=== PATIENT | female | born 1985 | race Caucasian/White ===

== ENCOUNTER 2022-03-26 17:21 | Outpatient (CLI) | payer BC, OTHER ==
[2022-03-26 18:12] LABS: Pregnancy Test - Urine (BHCG) Negative (Negative); Pregu Control Background? CLEAR/WHITE (CLR/WHITE); Pregu Control Bar Appear? YES (CONTROL BAR)
[2022-03-26 18:14] LABS: Hemoglobin 12.7 g/dL (12.0-15.5); Mean Corpuscular HGB CONC 31.8 g/dL (32.0-36.0); Mean Corpuscular Hemoglobin 28.1 pg (27.0-33.0); Mean Corpuscular Volume 88.5 fl (81.6-98.3); Mean Platelet Volume 9.8 fl (7.4-10.4); Platelet Count 342 10x3/uL (150-450); RBC Distribution Width 13.4 % (11.5-14.5); Red Blood Cell (RBC) Count 4.52 10x6/uL (3.90-5.03); White Blood Cell (WBC) Count 7.8 10x3/uL (3.5-10.5)
[2022-03-26 18:36] LABS: Anion Gap 18 mmol/L (10-20); BUN (Urea Nitrogen) 11 mg/dL (7.0-18.7); Calc. Creatinine Clearance 0 mL/min (70-130); Calcium 9.4 mg/dL (7.8-10.44); Carbon Dioxide 23 mmol/L (22-29); Chloride 104 mmol/L (98-107); Glucose 91 mg/dL (70-105); Potassium 3.9 mmol/L (3.5-5.1); Sodium 141 mmol/L (136-145)
[2022-03-27 12:35] LABS: SARS-CoV-2 PCR by NAA Not Detected (NotDetected)
== END 2022-03-26 17:22 | disposition home or self-care (01) ==
LOC: CSHLAB 17:21
PROVIDERS: ATTEND Obstetrics & Gynecology
DX: Z01.812 Encounter for preprocedural laboratory examination (principal); Z20.822 Contact with and (suspected) exposure to COVID-19
CPT/HCPCS: 80048; 81025; 85027; U0003; U0005

== ENCOUNTER 2022-03-29 05:42 | Day surgery (SDC) | payer BC, OTHER ==
[2022-03-27 11:18] VITALS: BMI 33.8
[2022-03-29] MEDS ORDERED: Lidocaine 1% MPF 2 ML VIAL ONE (06:48)
[2022-03-29] MEDS ORDERED: metroNIDAZOLE 500 MG/100 ML BAG ONE (07:01)
[2022-03-29] MEDS ORDERED: Midazolam HCl 2 mg/2 ml Vial ONE (07:05)
[2022-03-29] MEDS ORDERED: Famotidine/PF 20 mg/2ml Vial ONE (07:05)
[2022-03-29] MEDS ORDERED: Lidocaine 1% PF 5 ML VIAL ONE (07:10)
[2022-03-29] MEDS ORDERED: PROPOFOL 20 ML ONE (07:10)
[2022-03-29] MEDS ORDERED: Fentanyl 100 MCG/2 ML VIAL ONE (07:10)
[2022-03-29] MEDS ORDERED: Dexamethasone 20 MG/5 ML VIAL ONE (07:21)
[2022-03-29] MEDS ORDERED: Ondansetron PF 4 MG/2 ML Vial ONE (07:21)
[2022-03-29] MEDS ORDERED: Ketorolac Tromethamine 30 MG/ML VIAL ONE (07:46)
== END 2022-03-29 09:00 | disposition home or self-care (01) ==
LOC: CSHSDC 05:42
PROVIDERS: ATTEND Obstetrics & Gynecology
PROC: 0UDB7ZX Extraction of Endometrium, Via Natural or Artificial Opening, Diagnostic (ICD-10-PCS; principal; 2022-03-29)
PROC: 0U5B8ZZ Destruction of Endometrium, Via Natural or Artificial Opening Endoscopic (ICD-10-PCS; principal; 2022-03-29)
DX: N92.0 Excessive and frequent menstruation with regular cycle (principal); N94.6 Dysmenorrhea, unspecified; R87.610 Atypical squamous cells of undetermined significance on cytologic smear of cervix (ASC-US); Z79.899 Other long term (current) drug therapy; Z88.0 Allergy status to penicillin; Z88.1 Allergy status to other antibiotic agents
CPT/HCPCS: 88305; J1100; J1885; J2250; J2405; J2704; J3010; L8699; S0028

== ENCOUNTER 2024-06-05 13:30 | Outpatient (CLI) | payer OTHER | END 2024-06-05 13:31 | disposition home or self-care (01) | LOC: CSHMAMMO 13:30 | PROVIDERS: ATTEND Obstetrics & Gynecology | DX: Z12.31 Encounter for screening mammogram for malignant neoplasm of breast (principal); Z98.82 Breast implant status | CPT/HCPCS: 77063; 77067 ==